=== PATIENT | female | born 1985 | race Native Hawaiian/Other Pacific Islander ===

== ENCOUNTER 2016-06-22 14:45 | Emergency (ER) | payer OTHER ==
[~2016-06-22] VITALS: Ht 170.2 cm; Wt 65.3 kg
[2016-06-22] MEDS ORDERED: ALLEGRA ALRG60 M1 OR (15:00)
[2016-06-22] MEDS ORDERED: SINGULAIR4 MG PO (15:01)
[2016-06-22] MEDS ORDERED: NEXIUM10 MG PO (15:01)
[2016-06-22 15:40] LABS: PLATELET COUNT 307 K/uL (152-353)
[2016-06-22 15:57] LABS: POTASSIUM 3.3 mmol/L (3.6-5.2); SODIUM 137 mmol/L (136-145)
== END 2016-06-22 16:29 | disposition home or self-care (01) ==
LOC: ED 14:45
DX: R07.89 Other chest pain (principal)
CPT/HCPCS: 36415; 80053; 80307; 81000; 81025; 84484; 85027; 86318; 93005; 99283; G0479

== ENCOUNTER 2018-05-25 11:26 | Emergency (ER) | payer BC ==
[~2018-05-25] VITALS: Ht 170.2 cm; Wt 78.5 kg
[~2018-05-25 11:26] MED LIST: ALLEGRA ALRG60 M1 OR; NEXIUM10 MG PO; SINGULAIR4 MG PO
[2018-05-25 12:15] LABS: PLATELET COUNT 315 K/uL (152-353)
[2018-05-25 12:19] LABS: POTASSIUM 3.7 mmol/L (3.6-5.2); SODIUM 139 mmol/L (136-145)
[2018-05-25] MEDS ORDERED: PROAIR HFA INH (13:16)
[2018-05-25 16:20] VITALS: BP 115/65; TEMP 98.5
== END 2018-05-25 16:20 | disposition home or self-care (01) ==
LOC: ED 11:26
PROVIDERS: Emergency Medicine
DX: N12 Tubulo-interstitial nephritis, not specified as acute or chronic (principal); R10.84 Generalized abdominal pain
CPT/HCPCS: 80053; 80307; 81000; 81025; 82150; 82550; 82553; 83690; 84484; 85027; 93005; 96365; 96375; 99283; J1885; J1956; Q9963

== ENCOUNTER 2018-06-06 18:03 | Outpatient (CLI) | payer BC ==
[~2018-06-06 18:03] MED LIST changes: +PROAIR HFA INH
== END 2018-06-06 22:16 | disposition home or self-care (01) ==
LOC: LAB 18:03
DX: R10.33 Periumbilical pain (principal)
CPT/HCPCS: 84702

== ENCOUNTER 2018-10-19 06:07 | Emergency (ER) | payer BC ==
[~2018-10-19] VITALS: Ht 170.2 cm; Wt 76.2 kg
[2018-10-19 06:19] VITALS: TEMP 98.7
[2018-10-19 06:46] LABS: PLATELET COUNT 303 K/uL (152-353)
[2018-10-19 07:06] LABS: POTASSIUM 3.7 mmol/L (3.6-5.2)
[2018-10-19 13:36] VITALS: BP 116/74
== END 2018-10-19 13:36 | disposition home or self-care (01) ==
LOC: ED 06:07
PROVIDERS: Internal Medicine
DX: R10.30 Lower abdominal pain, unspecified (principal); D72.829 Elevated white blood cell count, unspecified
CPT/HCPCS: 36415; 80053; 81000; 85027; 96360; 96372; 99284; J1885; J2405; Q9963

== ENCOUNTER 2019-09-06 21:37 | Emergency (ER) | payer OTHER ==
[~2019-09-06] VITALS: Ht 170.2 cm; Wt 72.6 kg
[2019-09-06 22:35] LABS: PLATELET COUNT 216 K/uL (152-353)
[2019-09-06 22:41] LABS: POTASSIUM 3.7 mmol/L (3.6-5.2); SODIUM 133 mmol/L (136-145)
[2019-09-06 23:33] VITALS: BP 110/64; TEMP 98.9
== END 2019-09-06 23:38 | disposition home or self-care (01) ==
LOC: ED 21:37
PROVIDERS: Emergency Medicine
DX: T67.5XXA Heat exhaustion, unspecified, initial encounter (principal); R11.2 Nausea with vomiting, unspecified; X30.XXXA Exposure to excessive natural heat, initial encounter; Y92.481 Parking lot as the place of occurrence of the external cause
CPT/HCPCS: 36415; 80053; 82550; 82553; 83874; 85027; 96360; 96375; 99284; J2405